=== PATIENT | female | born 1985 | race American Indian/Alaskan Native ===

== ENCOUNTER 2018-05-22 16:07 | Day surgery (SDC) | payer BC ==
[2018-05-22 17:36] LABS: Basophils # (Auto) 0.1 K/mm3 (0.0-0.1); Eosinophils # (Auto) 0.1 K/mm3 (0.0-0.4); Eosinophils % (Auto) 1.1 % (0.0-4.3); Hematocrit 38.9 % (30.3-42.9); Hemoglobin 13.4 gm/dl (10.1-14.3); Lymphocytes # (Auto) 1.9 K/mm3 (1.2-5.4); Mean Corpuscular HGB Conc 34 % (30-34); Mean Corpuscular Hemoglobin 29 pg (28-32); Mean Corpuscular Volume 84 fl (79-97); Monocytes # (Auto) 0.5 K/mm3 (0.0-0.8); Platelet Count 263 K/mm3 (140-440); Red Blood Count 4.64 M/mm3 (3.65-5.03); Red Cell Distribution Width 13.4 % (13.2-15.2)
[2018-05-22 17:39] LABS: INR 0.91 (0.87-1.13); Partial Thromboplastin Time 22.9 Sec. (24.2-36.6)
[2018-05-22 17:39] LABS: HCG Qualitative,Urine Positive (Negative)
[2018-05-22 17:40] LABS: Bilirubin,Urine NEG (Negative); Blood,Urine NEG (Negative); Color,Urine Yellow (Yellow); Mucus,Urine 1+ /HPF; Protein,Urine <15 mg/dL mg/dL (Negative); Urobilinogen,Urine < 2.0 mg/dL (<2.0)
[2018-05-22 17:42] LABS: Alanine Aminotransferase 24 units/L (7-56); Albumin 3.9 g/dL (3.9-5); BUN/Creatinine Ratio 21; Blood Urea Nitrogen 15 mg/dL (7-17); Calcium 9.4 mg/dL (8.4-10.2); Hemolysis Index 5
--- NOTE | 2018-05-22 18:16 | Emergency Department Report ---
Chief Complaint: Abdominal Pain Stated Complaint: UNDER 13 WEEKS BABY IN TUBE Time Seen by Provider: 05/22/18 17:57 - HPI History of Present Illness: 32-year-old female presents to the emergency department with complaint of right-sided abdominal and pelvic pain and a known history of right- sided tubal /ectopic. The patient was at [facility] on 05/20 and had a confirmed right tubal by ultrasound. She was seen by the on- call CHAINSTITCH FELLED SEAM OPERATOR at that time and treated with methotrexate. Her CHAINSTITCH FELLED SEAM OPERATOR is Dr. Saeed. The patient has not had any vaginal bleeding but has started to have some increased pain to that right side. She spoke with the CHAINSTITCH FELLED SEAM OPERATOR was told to come to the emergency department. - ROS Review of Systems: Positive for right-sided abdominal/pelvic pain Negative for vaginal bleeding, fever, nausea or vomiting - Exam Vital Signs: Vital Signs 05/22/18 16:44 Temperature 98.4 F Pulse Rate 95 H Respiratory 16 Rate Blood Pressure 118/72 O2 Sat by Pulse 99 Oximetry Physical Exam: Patient is awake and alert in no acute distress. Heart and lung sounds are normal auscultation. There is some right-sided abdominal tenderness to palpation. MSE screening note: Focused history and physical exam performed. Due to findings the following was ordered: I have ordered a stat obstetric ultrasound and called the heavy line technician to get this done as soon as possible. The labs have been unremarkable other than positive for . ED Medical Decision Making - Lab Data Result diagrams: 05/22/18 17:13 05/22/18 17:13 ED Disposition for MSE Condition: Stable Instructions: Abdominal Pain (ED)
--- NOTE | 2018-05-22 19:22 | Ultrasound Report ---
FINAL REPORT PROCEDURE: US OB TRANSVAGINAL TECHNIQUE: Real-time transvaginal sonography of the uterus, placenta, amniotic fluid, adnexa, and fetus was performed with image documentation. Measurements were obtained to determine age/size. M-mode Doppler was used to document heartbeat. CPT 36825 HISTORY: right sided ectopic COMPARISON: Transabdominal OB ultrasound also performed today. FINDINGS: Report for this exam was generated using images from both the transabdominal and the transvaginal OB ultrasound both of which were performed today. The endometrial stripe is prominent measuring up to 15.6 millimeters. I do not see evidence of an intrauterine . No fluid is seen in the endometrial canal. Uterus measures 9.1 x 5.9 x 6.3 centimeter. No uterine masses are identified. In the right ovary there is a complex cystic lesion present measuring 1.6 centimeters. Within this small cystic area there appears to be a additional small cyst and a linear echogenic band of increased echogenicity. I suspect this represents an ectopic . There appears to be a heart rate of approximately 70 beats per minute. [place]-rump length measurement 2.8 millimeters suggest an age of 5 weeks and 6 days. Right ovary otherwise is unremarkable measuring 2.9 x 1.9 x 2.4 centimeter. Left ovary shows no abnormality measuring 2.5 x 1.9 x 2.0 centimeter. No free fluid is seen in the cul-de-sac. IMPRESSION: Complex cystic lesion right adnexa, right ovary, suspicious for ectopic . Uterus and left ovary are unremarkable. Critical value: I discussed these findings in detail with Garcia Wolf on 05/22/2018 at 7:13 p.m. [place] standard time
--- NOTE | 2018-05-22 19:26 | Ultrasound Report ---
FINAL REPORT PROCEDURE: US OB < = 14 WEEKS FETUS TECHNIQUE: Real-time transabdominal sonography of the uterus, placenta, amniotic fluid, adnexa, and fetus was performed with image documentation. Measurements were obtained to determine age/size. M-mode Doppler was used to document heartbeat. CPT 70735 HISTORY: Pain. Possible ectopic right adnexa. COMPARISON: Transvaginal OB ultrasound performed earlier today per FINDINGS: Report for this exam was generated using images from both the transabdominal and the transvaginal OB ultrasound both of which were performed today. The endometrial stripe is prominent measuring up to 15.6 millimeters. I do not see evidence of an intrauterine . No fluid is seen in the endometrial canal. Uterus measures 9.1 x 5.9 x 6.3 centimeter. No uterine masses are identified. In the right ovary there is a complex cystic lesion present measuring 1.6 centimeters. Within this small cystic area there appears to be a additional small cyst and a linear echogenic band of increased echogenicity. I suspect this represents an ectopic . There appears to be a heart rate of approximately 70 beats per minute. [place]-rump length measurement 2.8 millimeters suggest an age of 5 weeks and 6 days. Right ovary otherwise is unremarkable measuring 2.9 x 1.9 x 2.4 centimeter. Left ovary shows no abnormality measuring 2.5 x 1.9 x 2.0 centimeter. No free fluid is seen in the cul-de-sac. IMPRESSION: Complex cystic lesion visualize right ovary as described suspicious for ectopic . Uterus and left ovary are unremarkable. Critical value: I discussed these findings with MARGOT Wolf on 05/22/2018 at 7:13 p.m. Eastern standard time.
[2018-05-22] MEDS ORDERED: MORPHINE IV ONE (19:34)
[2018-05-22] MEDS ORDERED: NACL 0.9% 1000 ML 1,000 ML IV ONE (19:34)
[2018-05-22] MEDS ORDERED: TORADOL IV ONE (19:35)
--- NOTE | 2018-05-22 21:55 | Short Stay Summary ---
Short Stay Documentation Date of service: 05/22/18 Narrative H&P: This is a 13-year-old black female G2 presented to the emergency room complaining of increasing pain with a right ectopic . Patient was seen on May 20 at [facility] emergency room at that time she was diagnosed with the ectopic with a beta-hCG in the 5000s and was treated with methotrexate and instructions for follow-up in 4 days. Patient stabilized 24- hour for right lower quadrant pain is increasing denies any vaginal bleeding and nausea vomiting fever or chills. Ultrasound emergency room visit revealed a right ectopic no free fluid. The patient had increase of her beta- hCG to 8500. Patient morphine on presentation to the emergency room but patient said her pain is progressively Worse. The patient observation and possible repeat of methotrexate versus laparoscopy. Patient desires definitive treatment and continue her perceived failure of methotrexate desires operative laparoscopy. Patient on risks of the surgery include bleeding possibility heavy enough to require blood transfusion, infection and possible damage to bowel bladder or ureter. Patient also sent understands possible laparotomy if unable to complete complete the procedure with the laparoscope. Patient understands all the above and desires to proceed - History Past Medical History: other (Asthma) Past Surgical History: cholecystectomy Social history: single, full code - Allergies and Medications Current Medications: Allergies No Known Allergies Allergy (Unverified 05/22/18 16:50) - Physical exam General appearance: mild distress HEENT: Atraumatic Lungs: Normal air movement Breasts: deferred Heart: Regular rate Gastrointestinal: tenderness (right lower quadrant +/- rebound), guarding, obese Rectal Exam: deferred Extremities: no ischemia Neurological: Normal speech - Brief post op/procedure progress note Date of procedure: 05/23/18 (see dictated op note) - Hospital course Hospital course: Patient underwent the above procedure without any complications. Patient will be discharged with follow-up in office in 1-2 weeks for postop check. - Disposition Condition at discharge: Stable Disposition: DC-01 TO HOME OR SELFCARE - Discharge Diagnoses (1) Ectopic of ovary Status: Acute Qualifiers: Intrauterine status: without intrauterine Laterality: right Qualified Code(s): O00.201 - Right ovarian without intrauterine Short Stay Discharge Plan Activity: advance as tolerated Diet: regular Wound: open to air Additional Instructions: Patient will office for fever chills nausea vomiting or pain uncontrolled with pain medicine. Patient noticed back some vaginal bleeding. Patient follow up in the office in 1 week for postop check. Follow up with: TACO WALKER [Primary Care Provider] - 7 Days Prescriptions: Ibuprofen [Motrin 800 MG tab] 800 mg PO Q6H PRN #30 tablet PRN Reason: Pain oxyCODONE /ACETAMINOPHEN [Percocet 5/325 mg] 1 - 2 tab PO Q4H PRN #30 tablet PRN Reason: Pain, Moderate
[2018-05-22] MEDS ORDERED: XYLOCAINE MPF 2% ONE (22:15)
[2018-05-22] MEDS ORDERED: DILAUDID ONE (22:15)
[2018-05-22] MEDS ORDERED: DECADRON ONE (22:15)
[2018-05-22] MEDS ORDERED: DIPRIVAN 10 MG/ML IV ONE (22:15)
[2018-05-22] MEDS ORDERED: ZEMURON IV ONE (22:15)
[2018-05-22] MEDS ORDERED: ZOFRAN ONE (22:15)
[2018-05-22] MEDS ORDERED: MARCAINE 0.5% 30 ML INFILTRATI ONE (22:17)
[2018-05-22] MEDS ORDERED: REGLAN IV PRN (22:25)
[2018-05-22] MEDS ORDERED: DEMEROL IV PRN (22:25)
[2018-05-22] MEDS ORDERED: ZOFRAN IV PRN (22:25)
[2018-05-22] MEDS ORDERED: DILAUDID IV PRN ×2 (22:25)
--- NOTE | 2018-05-22 22:28 | Anesthesia Day of Surgery ---
Anesthesia Day of Surgery - Day of Surgery Patient Examined: Yes Patient H&P Reviewed: Yes Patient is NPO: Yes (since 2 PM)
--- NOTE | 2018-05-22 22:28 | Anesthesia Consultation ---
Anesthesia Consult and Med Hx Date of service: 05/22/18 - Airway Anesthetic Teeth Evaluation: Good ROM Head & Neck: Adequate Mental/Hyoid Distance: Adequate Mallampati Class: Class II Intubation Access Assessment: Probably Good - Pulmonary Exam CTA: Yes - Cardiac Exam Cardiac Exam: RRR - Pre-Operative Health Status ASA Pre-Surgery Classification: ASA2, Emergency Proposed Anesthetic Plan: General - Pulmonary Hx Asthma: Yes - Cardiovascular System Hx Hypertension: No - Central Nervous System Hx Seizures: No CVA: No - Endocrine Hx Renal Disease: No Hx Liver Disease: No - Other Systems Hx Obesity: Yes - Additional Comments Anesthesia Medical History Comments: Ectopic
--- NOTE | 2018-05-22 22:51 | Emergency Department Report ---
ED Female HPI - General Chief complaint: Abdominal Pain Stated complaint: UNDER 13 WEEKS BABY IN TUBE Time Seen by Provider: 05/22/18 17:57 Source: patient Mode of arrival: Ambulatory Limitations: No Limitations - History of Present Illness Initial comments: 32-year-old female presents with right lower quadrant pain fevers chills. Denies vaginal bleeding. Patient seen 2 days ago at [facility] informed that she was . Patient was treated for ectopic as ectopic was identified via ultrasound. Given IM methotrexate. Patient discharged and advised to return to the ED for any increased pain fever chills or vaginal bleeding. Patient states her right lower quadrant pain is worse today than it was before. Patient states her PARK AIDE doctor is Dr. Saeed that she called Dr. Saeed's office and was informed to come to the ED for evaluation. Patient is awake alert and oriented 3. Has been nothing by mouth since 1 PM today. Denies any vaginal bleeding at this time whatsoever. Accompanied by family members at bedside. MD Complaint: pelvic pain Onset/Timin -: days(s) Location: RLQ Radiation: RLQ Severity: severe Severity scale (0 -10): 8 Quality: sharp Consistency: constant Are you Now?: Yes Last Menstrual Period: 04/14/18 EDC: 01/19/19 - Related Data Sexually active: Yes Allergies Allergy/AdvReac Type Severity Reaction Status Date / Time No Known Allergies Allergy Verified 05/22/18 22:33 ED Review of Systems ROS: Stated complaint: UNDER 13 WEEKS BABY IN TUBE Other details as noted in HPI Constitutional: denies: chills, fever Eyes: denies: eye pain, eye discharge, vision change ENT: denies: ear pain, throat pain Respiratory: denies: cough, shortness of breath, wheezing Cardiovascular: denies: chest pain, palpitations Endocrine: no symptoms reported Gastrointestinal: abdominal pain. denies: nausea, diarrhea Genitourinary: denies: urgency, dysuria, discharge Musculoskeletal: denies: back pain, joint swelling, arthralgia Skin: denies: rash, lesions Neurological: denies: headache, weakness, paresthesias Psychiatric: denies: anxiety, depression Hematological/Lymphatic: denies: easy bleeding, easy bruising ED Past Medical Hx - Past Medical History Hx Hypertension: No Hx Liver Disease: No Hx Renal Disease: No Hx Seizures: No Hx Asthma: Yes - Social History Smoking Status: Never Smoker Substance Use Type: Alcohol ED Physical Exam - General Limitations: No Limitations General appearance: alert, in no apparent distress - Head Head exam: Present: atraumatic, normocephalic - Eye Eye exam: Present: normal appearance - ENT ENT exam: Present: mucous membranes moist - Neck Neck exam: Present: normal inspection - Respiratory Respiratory exam: Present: normal lung sounds bilaterally. Absent: respiratory distress - Cardiovascular Cardiovascular Exam: Present: regular rate, normal rhythm. Absent: systolic murmur, diastolic murmur, rubs, gallop - GI/Abdominal GI/Abdominal exam: Present: tenderness (right lower quadrant pain), guarding, rebound, normal bowel sounds - Extremities Exam Extremities exam: Present: normal inspection - Back Exam Back exam: Present: normal inspection - Neurological Exam Neurological exam: Present: alert, oriented X3 - Psychiatric Psychiatric exam: Present: normal affect, normal mood - Skin Skin exam: Present: warm, dry, intact, normal color. Absent: rash ED Course Vital Signs 05/22/18 05/22/18 16:44 19:27 Temperature 98.4 F Pulse Rate 95 H Respiratory 16 14 Rate Blood Pressure 118/72 O2 Sat by Pulse 99 Oximetry ED Medical Decision Making - Lab Data Result diagrams: 05/22/18 17:13 05/22/18 17:13 - Medical Decision Making A/P: Ectopic 1-ultrasound consistent with ectopic , I paged Dr. Michelle who is covering for Dr. Saeed and discussed the case with him. Patient to be admitted for further management by PARK AIDE 2-patient is nothing by mouth as 1:30 PM today and I advised her to not eat or drink anything until further notice 3-informed of current clinical plan and expresses understanding of current clinical situation. Patient's family members at bedside when I discussed this with her Critical care attestation.: If time is entered above; I have spent that time in minutes in the direct care of this critically ill patient, excluding procedure time. ED Disposition Clinical Impression: Ectopic of ovary Qualifiers: Intrauterine status: without intrauterine Laterality: right Qualified Code(s): O00.201 - Right ovarian without intrauterine Disposition: OP ADMIT IP TO THIS HOSP Is pt being admited?: Yes Does the pt Need Aspirin: No Condition: Stable Instructions: Abdominal Pain (ED) Referrals: TACO WALKER [Primary Care Provider] - 7 Days
[2018-05-22] MEDS ORDERED: NACL 0.9% 1000 ML 1,000 ML ONE (23:09)
[2018-05-22] MEDS ORDERED: MARCAINE 0.5% INFILTRATI ONE (23:31)
--- NOTE | 2018-05-22 23:48 | Post Anesthesia Evaluation ---
- Post Anesthesia Evaluation Patient Participated: Yes Airway Patent: Yes Stable Respiratory Function: Yes Nausea/Vomiting: No Temp > 96.8F: Yes Pain Manageable: Yes Adequeate Hydration: Yes Anesthesia Complications: No Block Receding Appropriately: Not Applicable Patient on Ventilator: No
[2018-05-23] MEDS ORDERED: BLOXIVERZ ONE (00:30)
[2018-05-23] MEDS ORDERED: ROBINUL ONE (00:30)
--- NOTE | 2018-05-23 00:46 | Operative Report ---
Operative Report Operative Report: Date of procedure:[09/25/2013] Pre-operative diagnosis: Ectopic Post-operative diagnosis: Right tubal ectopic Procedure name(s): Operative laparoscopy with right salpingectomy Surgeon: Babak Michelle MD Inside Wireman: None Anesthesia: General EBL: Minimal Complications: None Findings: Normal uterus and left tube and ovary normal right ovary right tubal ectopic approximately 3.5cm in length Specimen(s): Right tube and ectopic Procedure: Patient was brought in the operating room. General anesthesia was induced without difficulty. She was placed in dorsal lithotomy position. Prepped and draped in usual sterile manner. A Hull cath was placed in urinary bladder. [place] uterine manipulator was placed without difficulty. Attention was then switched to the patient's abdomen. An infra-umbilical incision was made with a scalpel. This incision was spread with a hemostat. A 5 mm trocar was placed in this incision while lifting high the abdominal wall. Intra-abdominal presence was verified directly with the laparoscope. The patient was then insufflated to approximately 3 L of CO2 gas. The patient's findings as noted above. An accessory puncture a 10 - 12 trocar was made suprapubically. The 10 -12 mm trocar was placed through this incision under direct visualization with no evidence of internal organ damage. An accessory puncture was made in the right lower quadrant. A 5 mm trocar was placed in this incision under direct visualization with no evidence of internal organ damage. The salpingectomy was performed by using the bipolar cutting instrument starting at each end of fallopian tube proximally near the cornea along the mesosalpinx until the fimbriated end was reached and the tube was detached from the ovary. Good hemostasis was found along the surgery site. The Endo Catch was then placed in the suprapubic incision and the ectopic was placed in the Endo Catch sack. The specimen was removed by extending the suprapubic incision without difficulty.s successfully. The trocar was replaced. The pelvis was closely irrigated and found to be hemostatic. Interceed was then placed over the surgery site to prevent future adhesions. The patient was deinsufflated. All instruments were removed. The large incision was closed in layers with 0 Vicryl for the fascia and 4-0 Vicryl subcutaneously. The smaller incisions were closed with 4-0 Vicryl subcutaneously. 20 mL of 5% Marcaine was placed in the incision for postoperative pain relief. The patient tolerated procedure well awakened in the operating room and accompanied to the recovery room in good condition.
[2018-05-23] MEDS: DILAUDID IV PRN ×3 (00:55→01:28)
[2018-05-23] MEDS ORDERED: PERCOCET 5/325 PO PRN (01:35)
[2018-05-23 03:04] VITALS: BP 107/65
== END 2018-05-23 02:34 | disposition home or self-care (01) ==
LOC: ED 16:07 → OR 23:18
PROVIDERS: ATTEND Obstetrics & Gynecology
DX: O00.101 Right tubal pregnancy without intrauterine pregnancy (principal); J45.909 Unspecified asthma, uncomplicated; E66.9 Obesity, unspecified; Z90.49 Acquired absence of other specified parts of digestive tract; Z79.01 Long term (current) use of anticoagulants; Z3A.14 14 weeks gestation of pregnancy; Z68.33 Body mass index [BMI] 33.0-33.9, adult
CPT/HCPCS: 36415; 59151; 76801; 76817; 80053; 81001; 81025; 84702; 85025; 85610; 85730; 86850; 86900; 86901; 88305; C1765; J1100; J1170; J1885; J2270; J2405; J2704; J2710; J7030

== ENCOUNTER 2018-05-26 12:57 | Emergency (ER) | payer BC ==
--- NOTE | 2018-05-26 13:20 | Emergency Department Report ---
<CHRIS DEMARCO - Last Filed: 05/26/18 18:46> ED Abdominal Pain HPI - General Chief Complaint: Abdominal Pain Stated Complaint: ABD PAIN Time Seen by Provider: 05/26/18 13:19 - Related Data Previous Rx's Medication Instructions Recorded Last Taken Type Ibuprofen [Motrin 800 MG tab] 800 mg PO Q6H PRN #30 tablet 05/23/18 Unknown Rx oxyCODONE /ACETAMINOPHEN [Percocet 1 - 2 tab PO Q4H PRN #30 tablet 05/23/18 Unknown Rx 5/325 mg] Ibuprofen [Motrin] 800 mg PO Q8HR PRN #30 tablet 05/26/18 Unknown Rx Levofloxacin [Levaquin TAB] 500 mg PO QDAY #7 tablet 05/26/18 Unknown Rx oxyCODONE /ACETAMINOPHEN [Percocet 1 tab PO Q6HR PRN #12 tablet 05/26/18 Unknown Rx 5/325] Allergies Allergy/AdvReac Type Severity Reaction Status Date / Time No Known Allergies Allergy Verified 05/22/18 22:33 ED Review of Systems ROS: Stated complaint: ABD PAIN Other details as noted in HPI ED Past Medical Hx - Medications Home Medications: Home Medications Medication Instructions Recorded Confirmed Last Taken Type Ibuprofen [Motrin 800 MG tab] 800 mg PO Q6H PRN #30 tablet 05/23/18 Unknown Rx oxyCODONE /ACETAMINOPHEN [Percocet 1 - 2 tab PO Q4H PRN #30 tablet 05/23/18 Unknown Rx 5/325 mg] Ibuprofen [Motrin] 800 mg PO Q8HR PRN #30 tablet 05/26/18 Unknown Rx Levofloxacin [Levaquin TAB] 500 mg PO QDAY #7 tablet 05/26/18 Unknown Rx oxyCODONE /ACETAMINOPHEN [Percocet 1 tab PO Q6HR PRN #12 tablet 05/26/18 Unknown Rx 5/325] ED Course Vital Signs 05/26/18 05/26/18 05/26/18 13:02 14:30 14:31 Temperature 98.8 F Pulse Rate 96 H 85 Respiratory 16 16 Rate Blood Pressure 122/74 O2 Sat by Pulse 99 99 Oximetry 05/26/18 05/26/18 14:46 15:00 Temperature Pulse Rate Respiratory Rate Blood Pressure 111/63 122/68 O2 Sat by Pulse 100 100 Oximetry ED Medical Decision Making - Lab Data Result diagrams: 05/26/18 14:02 05/26/18 14:02 Critical care attestation.: If time is entered above; I have spent that time in minutes in the direct care of this critically ill patient, excluding procedure time. ED Disposition Clinical Impression: Ovarian cyst Abdominal pain Qualifiers: Abdominal location: right lower quadrant Qualified Code(s): R10.31 - Right lower quadrant pain UTI (urinary tract infection) Qualifiers: Urinary tract infection type: acute cystitis Hematuria presence: without hematuria Qualified Code(s): N30.00 - Acute cystitis without hematuria Disposition: TO HOME OR SELFCARE Is pt being admited?: No Does the pt Need Aspirin: No Condition: Stable Instructions: Ovarian Cyst (ED), Urinary Tract Infection in Women (ED), Abdominal Pain (ED) Additional Instructions: return if worse Prescriptions: Ibuprofen [Motrin] 800 mg PO Q8HR PRN #30 tablet PRN Reason: Pain , Severe (7-10) Levofloxacin [Levaquin TAB] 500 mg PO QDAY #7 tablet oxyCODONE /ACETAMINOPHEN [Percocet 5/325] 1 tab PO Q6HR PRN #12 tablet PRN Reason: Pain Referrals: PRIMARY CARE, [Primary Care Provider] - 3-5 Days Time of Disposition: 18:47 <EARNESTINE REYNA - Last Filed: 05/27/18 16:54> ED Abdominal Pain HPI - General Source: patient, family Mode of arrival: Ambulatory Limitations: No Limitations - History of Present Illness Initial Comments: Patient had an ectopic which was treated by a right salpingectomy on Tuesday by Dr. Michelle. Patient came back to the emergency room this afternoon complaining of right lower quadrant abdominal pain since yesterday. She also said when she goes to the bathroom she sees blood clots in the toilet bowel. Patient is not sure whether the Blood is coming from the Urine from her Vagina. She has Nausea but No Vomiting. She Denies fever or Chills. Patient is accompanied to the Emergency Room by her Mother who is at the Bedside. MD Complaint: abdominal pain -: days(s) (1) Location: RLQ Radiation: none Migration to: no migration Severity: severe Severity scale (0 -10): 9 Quality: cramping, sharp Consistency: constant Improves With: nothing Worsens With: nothing Associated Symptoms: nausea, hematuria. denies: vomiting, diarrhea, fever, chills ED Review of Systems Comment: All other systems reviewed and negative Constitutional: denies: chills, fever Eyes: denies: eye pain, eye discharge ENT: denies: ear pain, throat pain, dental pain Respiratory: denies: cough, orthopnea, shortness of breath Cardiovascular: denies: chest pain, palpitations, dyspnea on exertion Endocrine: no symptoms reported Gastrointestinal: abdominal pain, nausea. denies: vomiting, diarrhea, constipation, hematemesis Genitourinary: denies: urgency, dysuria Musculoskeletal: denies: back pain, joint swelling Skin: denies: rash, lesions, change in color Neurological: denies: headache, weakness, numbness Psychiatric: denies: anxiety, depression, auditory hallucinations Hematological/Lymphatic: denies: easy bleeding, easy bruising ED Past Medical Hx - Past Medical History Hx Hypertension: No Hx Liver Disease: No Hx Renal Disease: No Hx Seizures: No Hx Asthma: Yes - Surgical History Past Surgical History?: No - Social History Smoking Status: Never Smoker Substance Use Type: None ED Physical Exam - General Limitations: No Limitations General appearance: alert, in distress - Head Head exam: Present: atraumatic, normocephalic, normal inspection - Eye Eye exam: Present: normal appearance, PERRL, EOMI Pupils: Present: normal accommodation - ENT ENT exam: Present: normal exam, normal orophraynx, mucous membranes moist - Neck Neck exam: Present: normal inspection, full ROM. Absent: tenderness - Respiratory Respiratory exam: Present: normal lung sounds bilaterally. Absent: respiratory distress, wheezes, rales, rhonchi, stridor - Cardiovascular Cardiovascular Exam: Present: regular rate, normal rhythm, normal heart sounds - GI/Abdominal GI/Abdominal exam: Present: soft, tenderness (RLQ), guarding, rebound, normal bowel sounds. Absent: distended - External exam: Present: other (Patient refused pelvic examination.) - Extremities Exam Extremities exam: Present: normal inspection, full ROM, normal capillary refill. Absent: tenderness - Back Exam Back exam: Present: normal inspection, full ROM - Neurological Exam Neurological exam: Present: alert, oriented X3, CN II-XII intact - Psychiatric Psychiatric exam: Present: normal affect, normal mood - Skin Skin exam: Present: warm, dry, intact, normal color. Absent: rash ED Course - Reevaluation(s) Reevaluation #1: 05/26/18 16:08 Patient care was transitioned to Dr. Demarco at shift change. She is pending CT scan of the abdomen and pelvis with contrast and also pelvic ultrasound. ED Medical Decision Making - Lab Data Result diagrams: 05/26/18 14:02 05/26/18 14:02 - Radiology Data Radiology results: pending, report reviewed - Medical Decision Making RLQ abdominal pain. ED Disposition Does the pt Need Aspirin: No
[2018-05-26] MEDS ORDERED: NACL 0.9% 1000 ML 1,000 ML IV ONE ×2 (13:43→13:45)
[2018-05-26] MEDS ORDERED: ZOFRAN ODT PO/SL ONE (13:43)
[2018-05-26] MEDS ORDERED: PROTONIX IV ONE (13:43)
[2018-05-26] MEDS ORDERED: MORPHINE IV ONE ×3 (13:45→18:44)
[2018-05-26] MEDS ORDERED: MORPHINE IM ONE (14:26)
[2018-05-26 14:30] LABS: Basophils % (Auto) 0.6 % (0.0-1.8); Eosinophils # (Auto) 0.2 K/mm3 (0.0-0.4); Eosinophils % (Auto) 2.1 % (0.0-4.3); Hematocrit 36.6 % (30.3-42.9); Hemoglobin 12.3 gm/dl (10.1-14.3); Lymphocytes # (Auto) 1.5 K/mm3 (1.2-5.4); Lymphocytes % (Auto) 20.6 % (13.4-35.0); Mean Corpuscular HGB Conc 34 % (30-34); Mean Corpuscular Hemoglobin 28 pg (28-32); Mean Corpuscular Volume 84 fl (79-97); Monocytes # (Auto) 0.4 K/mm3 (0.0-0.8); Monocytes % (Auto) 6.3 % (0.0-7.3); Platelet Count 235 K/mm3 (140-440); Red Blood Count 4.36 M/mm3 (3.65-5.03); Red Cell Distribution Width 13.2 % (13.2-15.2)
[2018-05-26 14:39] LABS: INR 0.92 (0.87-1.13)
[2018-05-26 14:54] LABS: Alanine Aminotransferase 29 units/L (7-56); Albumin 3.8 g/dL (3.9-5); BUN/Creatinine Ratio 10; Blood Urea Nitrogen 7 mg/dL (7-17); Calcium 9.2 mg/dL (8.4-10.2); Hemolysis Index 2; Lipase 17 units/L (13-60)
[2018-05-26 14:55] LABS: Bilirubin,Direct < 0.2 mg/dL (0-0.2)
[2018-05-26 15:29] VITALS: BP 122/68
--- NOTE | 2018-05-26 16:18 | Cat Scan Report ---
FINAL REPORT EXAM: CT ABDOMEN PELVIS W CON HISTORY: Abdominal Pain TECHNIQUE: CT of the abdomen and pelvis with IV contrast. Coronal and sagittal reconstructed imaging provided. PRIORS: None currently available. FINDINGS: ABDOMEN: Prior cholecystectomy. Liver, stomach, spleen, pancreas, and kidneys are unremarkable. There is no abdominal aortic aneurysm. No dissection. IVC is unremarkable. There is no periaortic or retroperitoneal adenopathy or mass. Mild wall thickening of the descending colon down to the rectum may be related to incomplete distention or mild colitis. Trace stranding noted. Otherwise [id number] stool in the remainder colon without wall thickening or inflammatory changes. Appendix is normal. Terminal ileum is unremarkable. Small bowel loops are unremarkable. No obstruction. No air-fluid levels. Mesentery is unremarkable. Fat-containing umbilical hernia without strangulation. Small pocket of gas noted within the hernia identified. Small pockets of gas noted along the anterior abdominal wall in the right lower quadrant on series 2:24. PELVIS: Stranding and small pockets of gas in the subcutaneous fat of the right anterior intrapelvic region and also in the right and anterior aspect of the pelvic subcutaneous soft tissues. Heterogeneous area of low attenuation in the right adnexa measuring 2.9 x 1.8 cm may represent a right ovary with complex cyst. Differential diagnosis includes postsurgical changes, small hematoma, or complex cyst. Small amount of free fluid within the pelvis. Limited CT images of the uterus are unremarkable. Bladder is unremarkable. There is no pelvic mass or adenopathy. Inguinal regions are unremarkable. Bones: No suspicious osseous lesions on this limited examination of the skeleton. Metastatic disease better evaluated with bone scan. IMPRESSION: Possible mild colitis of the descending colon. Differential diagnosis includes collapsed colon, postsurgical colonic ileus, and enterocolitis. No perforation or abscess. Small pockets of gas in the abdomen and pelvis and also within the subcutaneous soft tissues may represent postsurgical changes. Heterogeneous appearance in the right adnexa may represent postsurgical changes, tiny hematoma, and or complex cyst. Postsurgical changes and small hematoma favored at this time. Interval follow-up is recommended. Small amount of free fluid in the pelvis is nonspecific and may represent postsurgical changes. May 26, 2018 at 1304 PDT: I discussed the findings over phone with Dr. Demarco.
[2018-05-26 16:20] LABS: HCG Qualitative,Urine Positive (Negative)
[2018-05-26 16:22] LABS: Bilirubin,Urine NEG (Negative); Blood,Urine LG (Negative); Color,Urine Straw (Yellow); Mucus,Urine FEW /HPF; Protein,Urine <15 mg/dL mg/dL (Negative); Urobilinogen,Urine < 2.0 mg/dL (<2.0)
[2018-05-26] MEDS ORDERED: ROCEPHIN/NS 1 GM/50 ML 1 GM/50 ML BAG IV ONE (16:31)
--- NOTE | 2018-05-26 17:44 | Ultrasound Report ---
FINAL REPORT EXAM: US OB < = 14 WEEKS FETUS and transvaginal ultrasound, Ob HISTORY: Pelvic Pain worse in the RLQ Patient had a live ectopic gestation which was removed on May 22, 2018. TECHNIQUE: Transabdominal and transvaginal grayscale, color flow and Doppler waveform imaging of the pelvis was performed. Comparison: OB ultrasound dated May 22, [address] abdomen and pelvis also performed today FINDINGS: Transabdominal: The urinary bladder is moderately distended and unremarkable in appearance. The uterus measures 10.4 centimeters x 4.5 centimeters by 5.6 centimeters. Endometrial thickness measures 7 millimeters. There is no demonstration of an intrauterine gestation. The left ovary measures 3.5 centimeters x 1.8 centimeters x 2.3 centimeters, is normal in appearance and contains follicles. Flow is demonstrated in the left ovary utilizing color flow imaging. The right ovary is not well visualized on the transabdominal study. Transvaginal: Endometrial thickness measures 7.9 millimeters. There is no demonstration of an intrauterine gestation. The right ovary measures 2.4 centimeters x 1.7 centimeters x 2 centimeters and contains an approximately the 1.7 centimeter x 1.2 centimeter x 1.5 centimeter hypoechoic collection with internal echoes. Possible complex corpus luteum cyst. This was also demonstrated on the previous ultrasound. Flow is demonstrated in the right ovary utilizing color flow and Doppler waveform imaging. No adnexal masses are demonstrated. There is a small amount of free fluid in the cul-de-sac. The left ovary is not visualized on the transvaginal study. IMPRESSION: 1. No demonstration of an intrauterine or ectopic gestation on the transabdominal or transvaginal study. 2. Persistent cystic appearing structure right ovary with internal echoes which may represent an involuting corpus luteum cyst. 3. Interval decrease in thickness of endometrium. 4. Small amount of free fluid in the cul-de-sac.
--- NOTE | 2018-05-26 17:48 | Ultrasound Report ---
FINAL REPORT EXAM: US OB TRANSVAGINAL US OB < = 14 WEEKS FETUS and transvaginal ultrasound, Ob HISTORY: Pelvic pain Patient had a live ectopic gestation which was removed on May 22, 2018. TECHNIQUE: Transabdominal and transvaginal grayscale, color flow and Doppler waveform imaging of the pelvis was performed. Comparison: OB ultrasound dated May 22, [address] abdomen and pelvis also performed today FINDINGS: Transabdominal: The urinary bladder is moderately distended and unremarkable in appearance. The uterus measures 10.4 centimeters x 4.5 centimeters by 5.6 centimeters. Endometrial thickness measures 7 millimeters. There is no demonstration of an intrauterine gestation. The left ovary measures 3.5 centimeters x 1.8 centimeters x 2.3 centimeters, is normal in appearance and contains follicles. Flow is demonstrated in the left ovary utilizing color flow imaging. The right ovary is not well visualized on the transabdominal study. Transvaginal: Endometrial thickness measures 7.9 millimeters. There is no demonstration of an intrauterine gestation. The right ovary measures 2.4 centimeters x 1.7 centimeters x 2 centimeters and contains an approximately the 1.7 centimeter x 1.2 centimeter x 1.5 centimeter hypoechoic collection with internal echoes. Possible complex corpus luteum cyst. This was also demonstrated on the previous ultrasound. Flow is demonstrated in the right ovary utilizing color flow and Doppler waveform imaging. No adnexal masses are demonstrated. There is a small amount of free fluid in the cul-de-sac. The left ovary is not visualized on the transvaginal study. IMPRESSION: 1. No demonstration of an intrauterine or ectopic gestation on the transabdominal or transvaginal study. 2. Persistent cystic appearing structure right ovary with internal echoes which may represent an involuting corpus luteum cyst. 3. Interval decrease in thickness of endometrium. 4. Small amount of free fluid in the cul-de-sac.
[2018-05-26] MEDS ORDERED: ZOFRAN IV ONE (18:44)
== END 2018-05-26 19:05 | disposition home or self-care (01) ==
LOC: ED 12:57
DX: N30.00 Acute cystitis without hematuria (principal); N83.209 Unspecified ovarian cyst, unspecified side; R10.31 Right lower quadrant pain; J45.909 Unspecified asthma, uncomplicated
CPT/HCPCS: 36415; 51701; 74177; 76801; 76817; 80048; 80074; 81001; 81025; 83690; 84702; 85025; 85610; 87040; 87086; 96361; 96365; 96372; 96375; 96376; 99285; C9113; J0696; J2270; J2405; J7030; Q9967; Q0162